=== PATIENT | female | born 1975 | race Caucasian/White ===

== ENCOUNTER → 2021-04-22 | Outpatient (CLI) | payer OTHER ==
[~2021-04-22] MED LIST: ASCO100018 PO; GADOTERATE 10 MMOL/20ML SYR ONE; IRON PO; LAMO25TA5 PO; QUET100T4 PO
== END | disposition home or self-care (01) ==
LOC: CFH 09:11
PROVIDERS: ATTEND Nurse Practitioner Primary Care
DX: R25.3 Fasciculation (principal); Z79.899 Other long term (current) drug therapy; Z68.28 Body mass index [BMI] 28.0-28.9, adult
CPT/HCPCS: 70553; 76770; A9575